=== PATIENT | male | born 1995 | race Caucasian/White ===

== ENCOUNTER 2016-07-27 15:24 | Emergency (ER) | payer SELFPAY ==
[~2016-07-27] VITALS: Ht 167.6 cm; Wt 65.8 kg
--- NOTE | 2016-07-27 15:42 | PHYS DOC ---
Adult General Chief Complaint Chief Complaint: ABDOMINAL PAIN HPI HPI Patient is a 21 year old male that presents with cough, congestion, sore throat , body aches, headache and fever for two days. Took over the counter Dayquil at 0500. Denies asthma. Pack a day smoker. Very talkative. Denies shortness of air. Review of Systems Review of Systems Constitutional: Fever two days Eyes: Denies change in visual acuity, redness, or eye pain HENT: Nasal cognestion and sore throat two days Respiratory: Denies shortness of breath. COugh two days Cardiovascular: No additional information not addressed in HPI GI: Denies abdominal pain, nausea, bloody stools or diarrhea. Post tussive vomiting twice yesterday : Denies dysuria or hematuria Musculoskeletal: Denies back pain or joint pain Integument: Denies rash or skin lesions Neurologic: Denies headache, focal weakness or sensory changes Endocrine: Denies polyuria or polydipsia Current Medications Current Medications Current Medications Medications (Trade) Dose Ordered Sig/Radha Start Time Stop Time Status Last Admin Dose Admin Ibuprofen (Motrin) 800 mg 1X ONCE 07/27/16 16:00 07/27/16 16:01 DC 07/27/16 16:38 800 MG Allergies Allergies Allergies Coded Allergies Type Severity Reaction Last Updated Verified erythromycin base Allergy Intermediate Hives 07/27/16 Yes Physical Exam Physical Exam Constitutional: Well developed, well nourished, no acute distress, non-toxic appearance. HENT: Normocephalic, atraumatic, bilateral external ears normal, oropharynx moist, no oral exudates. Clear drainage bilateral nares and oropharynx erythematous without exudate. Eyes: PERRLA, EOMI, conjunctiva normal, no discharge. Neck: Normal range of motion, no tenderness, supple, no stridor. Cardiovascular:Heart rate regular rhythm, no murmur Lungs & Thorax: Bilateral breath sounds clear to auscultation. No wheezing, accessory muscle use. Abdomen: Bowel sounds normal, soft, no tenderness, no masses, no pulsatile masses. Skin: Warm, dry, no erythema, no rash. Back: No tenderness, no CVA tenderness. Extremities: No tenderness, no cyanosis, no clubbing, ROM intact, no edema. [] Neurologic: Alert and oriented X 3, normal motor function, normal sensory function, no focal deficits noted. [] Psychologic: Affect normal, judgement normal, mood normal. [] Current Patient Data Vital Signs Vital Signs Date Time Temp Pulse Resp B/P Pulse Ox O2 Delivery O2 Flow Rate FiO2 07/27/16 16:15 76 18 118/58 95 Room Air 07/27/16 15:35 98.5 98.5 Lab Values Laboratory Tests Test 07/27/16 15:47 Influenza Type A Antigen Negative (NEGATIVE) Influenza Type B Antigen Negative (NEGATIVE) EKG EKG [] Radiology/Procedures Radiology/Procedures [] Impressions: 1. Viral illness Course & Med Decision Making Course & Med Decision Making Pertinent Labs and Imaging studies reviewed. (See chart for details) [] Dragon Disclaimer Dragon Disclaimer This electronic medical record was generated, in whole or in part, using a voice recognition dictation system. Departure Departure Impression: Primary Impression: Viral illness Disposition: 01 HOME, SELF-CARE Condition: STABLE Patient Instructions: Viral Infections, [id number] Additional Instructions: 1. Take medication as prescribed. 2. Follow up with primary doctor in 1- 2 days 3. Stop smoking 4. Return if problems or concerns Scripts Benzonatate (Tessalon Perle)100 Mg [id number] Mg PO TID PRN COUGH #20 CAP Prov:NAZARIO THEODORE APRN 07/27/16 Guaifenesin (Mucinex)600 Mg Tablet.er1 Tab PO BID #14 TAB Prov:NAZARIO THEODORE APRN 07/27/16 NAZARIO THEODORE APRN Jul 27, 2016 15:42
[2016-07-27] MEDS ORDERED: IBUPROFEN 800 MG TABLET. PO ONE (16:00)
[2016-07-27 16:15] VITALS: BP 118/58
[2016-07-27 16:21] LABS: OBC FLU VALID
--- NOTE | 2016-07-27 16:36 | RAD ---
PA and lateral chest. History: Cough and fever, history asthma PA and lateral views were taken of the chest. Lungs are clear. Heart is normal in size. There is no effusion. Impression: 1. No acute chest disease.
[2016-07-27] MEDS ORDERED: GUAI600T38 PO (17:03)
[2016-07-27] MEDS ORDERED: BENZ100C PO (17:03)
== END 2016-07-27 17:15 | disposition home or self-care (01) ==
LOC: ER 15:24
DX: B34.9 Viral infection, unspecified (principal); J02.9 Acute pharyngitis, unspecified; R51 Headache; F17.210 Nicotine dependence, cigarettes, uncomplicated; Z88.1 Allergy status to other antibiotic agents
CPT/HCPCS: 71020; 87804; 99285-25